=== PATIENT | female | born 1935 | race Two or more races ===

== ENCOUNTER 2021-05-14 13:10 | Inpatient (IN) | payer MEDICARE, OTHER ==
[~2021-05-14] VITALS: Ht 160 cm; Wt 79.4 kg
--- NOTE | 2021-05-14 13:40 | NUR ---
PT BIB FAMILY, PER FAMILY PT HAS HX OF DEMENTIA. AND IS BEING AGGRESSIVE TO FAMILY MEMBERS. FAMILY REQUESTING PSYCH EVAL FOR POSSIBLE GEROPSYCH OR SNF PLACEMENT. STABLE VITAL SIGN INFORMATION DEVELOPER. AWAITING MD HIDALGO.
--- NOTE | 2021-05-14 14:36 | NUR ---
SEEN AND EXAMINED BY .
[2021-05-14 15:42] LABS: BASOPHILS % (AUTO) 0.7 % (0.0-2.0); EOSINOPHILS % (AUTO) 1.3 % (0.0-6.0); HEMATOCRIT 37 % (39-51); HEMOGLOBIN 12.3 g/dL (13.5-17.5); LYMPHOCYTES # (AUTO) 1.7 K/uL (0.8-4.8); LYMPHOCYTES % (AUTO) 33.3 % (20.0-44.0); MEAN CORPUSCULAR HGB CONC 33 g/dl (31.0-36.0); MEAN CORPUSCULAR VOLUME 86 fL (80-96); MONOCYTES # (AUTO) 0.4 K/uL (0.1-1.30); MONOCYTES % (AUTO) 7.4 % (2.0-12.0); NEUTROPHILS % (AUTO) 57.3 % (43.0-81.0); PLATELET COUNT (AUTO) 189 K/uL (150-450); RED BLOOD CELL COUNT(AUTO) 4.35 MIL/uL (4.5-6.0); WHITE BLOOD COUNT (AUTO) 5.2 K/uL (4.3-11.0)
[2021-05-14 15:43] LABS: BILIRUBIN,URINE NEGATIVE (NEGATIVE); COLOR,URINE YELLOW (YELLOW); LEUKOCYTE ESTERASE ,URINE TRACE (NEGATIVE); NITRITE, URINE NEGATIVE (NEGATIVE); PROTEIN,URINE NEGATIVE (NEGATIVE); UGLUCOSE NEGATIVE (NEGATIVE); UROBILINOGEN,URINE 0.2 EU/dL (0.2)
--- NOTE | 2021-05-14 15:45 | NUR ---
RECEIVED A CALL FROM [facility] REINALDO AND PATIENT IS GOOD TO BE ADMITTED. PRIMARY PSYCHIATRIST WILL BE DR. PADRON.
[2021-05-14 15:54] LABS: BACTERIA,URINE None seen /HPF (None Seen); RBC,URINE 0-2 /HPF (0-2)
[2021-05-14 16:04] LABS: CALCIUM, SERUM 8.9 mg/dL (8.5-10.1); CARBON DIOXIDE 28 mmol/L (21-32); CHLORIDE 103 mmol/L (98-107); CREATININE 0.7 mg/dL (0.6-1.3); GLUCOSE 125 mg/dL (74-106); POTASSIUM 4.3 mmol/L (3.5-5.1); SODIUM SERUM 138 mmol/L (136-145); UREA NITROGEN, BLOOD 18 mg/dL (7-18)
[2021-05-14 16:11] LABS: ALCOHOL, BLOOD < 3 mg/dL (0-0)
[2021-05-14 16:12] LABS: THYROID STIMULATING HORMONE 1.383 uIU/mL (0.358-3.74)
[2021-05-14 16:28] LABS: ACETAMINOPHEN < 2 ug/ml (10-30)
[2021-05-14] MEDS ORDERED: EZET10TA32 PO (16:58)
[2021-05-14] MEDS ORDERED: CLON0.1T PO (16:58)
[2021-05-14] MEDS ORDERED: GLIP5TAB13 PO (16:58)
[2021-05-14] MEDS ORDERED: COLC0.6C3 PO (16:58)
[2021-05-14] MEDS ORDERED: ALBU18HF2 INH (16:58)
[2021-05-14] MEDS ORDERED: SITA1TAB2 PO (16:58)
[2021-05-14] MEDS ORDERED: HYDR-4076 PO (16:58)
[2021-05-14] MEDS ORDERED: METO25TA20 PO (16:58)
[2021-05-14] MEDS ORDERED: MYRBETRIQ PO (16:58)
[2021-05-14] MEDS ORDERED: TRAM50TA2 PO (16:58)
[2021-05-14] MEDS ORDERED: FLUT1DIS3 INH (16:58)
[2021-05-14] MEDS ORDERED: CELE-85 PO (16:58)
[2021-05-14] MEDS ORDERED: VALS320T2 PO (16:58)
[2021-05-14] MEDS ORDERED: VENL37.510 PO (16:58)
[2021-05-14] MEDS ORDERED: CLOP75TA15 PO (16:58)
[2021-05-14] MEDS ORDERED: ICOS1CAP PO (16:58)
[2021-05-14] MEDS ORDERED: DEXL60CA3 PO (16:58)
--- NOTE | 2021-05-14 17:28 | NUR ---
ART HEALTH CONSULTANT AT BEDSIDE FOR EVAL.
--- NOTE | 2021-05-14 18:39 | NUR ---
REPORT GIVEN TO LEYDI ROJO. AWAITING TRANSFER TO [facility].
[2021-05-14] MEDS ORDERED: TEMAZEPAM 7.5 MG CAPSULE PO PRN (19:30)
[2021-05-14] MEDS ORDERED: Medication Not On Formulary EA (Icosapent Ethyl (Vascepa) 2 CAP) PO SCH (19:30)
[2021-05-14] MEDS ORDERED: MAG HYDROX/AL HYDROX/SIMETH 30 ML UDC PO PRN (19:30)
[2021-05-14] MEDS ORDERED: DEXTROSE 50%-WATER 50 ML DISP.SYRIN IV PRN (19:30)
[2021-05-14] MEDS ORDERED: ALBUTEROL SULFATE 8 GM HFA.AER.AD NEB PRN (19:30)
[2021-05-14] MEDS ORDERED: FLUTICASONE/SALMETEROL 1 DISK IH SCH (19:30)
[2021-05-14] MEDS ORDERED: TRAMADOL HCL 50 MG TABLET PO PRN (19:30)
[2021-05-14] MEDS ORDERED: MAGNESIUM HYDROXIDE 30 ML UDC PO PRN (19:30)
[2021-05-14 19:50] VITALS: BP 148/86
[2021-05-14 20:04] VITALS: BP 148/86
[2021-05-14] MEDS ORDERED: BLOOD SUGAR DIAGNOSTIC 1 EACH STRIP IN ONE (20:30)
--- NOTE | 2021-05-14 20:31 | NUR ---
MS RN NOTE LAND ACQUISITION SPECIALIST TOHONO O'ODHAM CALLED TO INFORM THAT PATIENT'S HOME MEDS ADVAIR INHALER, MYRBETRIQ, VASCEPA, JANUMET/METFORMIN ARE NOT AVAILABLE AT [facility]. SPOKE TO PATIENT'S GRANDSON ALEJANDRA AND HE STATED THAT MYRBETRIQ, ADVAIR, VASCEPA HAS BEEN DISCONTINUED BY PATIENT'S PRIMARY CARE DOCTOR A WHILE BACK AND ALEJANDRA WILL PROVIDE JANUMET/METFORMIN TOMORROW IN AM. NOTIFIED LAND ACQUISITION SPECIALIST TOHONO O'ODHAM ABOUT CONVERSATION WITH PATIENT'S GRANDSON. PER TOHONO O'ODHAM, SHE WILL INFORM ES ROSADO. ADVAIR INHALER NOT ADMINISTERED SCHEDULED AT 1930, NOT AVAILABLE AND PER PATIENT'S GRANDSON, IT HAS BEEN DISCONTINUED ALREADY. Addendum: 05/14/21 at 2131 by PAOLA IRBY RN GPS RN NOTE, NOT MS RN NOTE.
[2021-05-14] MEDS: hydrALAZINE HCL 25 MG TABLET PO SCH (20:38)
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
--- NOTE | 2021-05-14 21:23 | NUR ---
GPS RN NOTE: PER PATIENT'S GRANDSON ALEJANDRA, PATIENT REFUSES TO TAKE FLU, PNEUMOCOCCAL AND COVID VACCINE. PER ALEJANDRA," MY GRANDMOTHER BELIEVES THAT THESE VACCINES WON'T WORK FOR HER AND SHE CONTINUES TO REFUSE."
--- NOTE | 2021-05-14 21:45 | NUR ---
GPS RN NOTE PER PATIENT'S GRANDSON ALEJANDRA," IF THERE IS ANY CONCERNS REGARDING MY GRANDMOTHER' S CONDITION OR IF ANYONE HAS ANY QUESTIONS, PLEASE ONLY CALL ME AT [phone]. DO NOT CALL MY OTHER FAMILY MEMBERS. I AM A CARE PROVIDER FOR MY GRAND MOTHER WELL. FEEL FREE TO CALL ME FOR ANY CONCERNS." WILL ENDORSE TO AM RN AND ON NURSING REPORT WELL.
[2021-05-14] MEDS: BLOOD SUGAR DIAGNOSTIC 1 EACH STRIP IN SCH (22:00)
[2021-05-14] MEDS: LORAZEPAM 0.5 MG TABLET PO PRN (22:30)
--- NOTE | 2021-05-14 22:33 | NUR ---
GPS RN NOTE: ANXIETY PATIENT C/O ANXIETY AND NOTED TO BE RESTLESS AT THIS TIME. PRN ATIVAN 0.5 MG 1 TAB PO ADMINISTERED. WILL CONTINUE TO MONITOR FOR ANY CHANGE OF CONDITION.
[2021-05-14] MEDS: INSULIN REGULAR, HUMAN 100 UNIT/ML 3 ML VIAL SQ PRN (22:43)
--- NOTE | 2021-05-14 22:44 | NUR ---
GPS RN NOTE: MEDICATION REFUSAL PATIENT REFUSED ACCU CHECK AND SLIDING SCALE INSULIN SCHEDULED AT 2200. PATIENT'S BLOOD SUGAR WAS CHECKED EARLIER UPON ADMISSION AND IT WAS 138 MG/DL. PATIENT HAD SMALL AMOUNT OF SNACK AND REFUSED TO CHECK HER BLOOD SUGAR LEVEL AGAIN AT THIS TIME. WILL CONTINUE TO MONITOR THE PATIENT CLOSELY.
[2021-05-15 08:00] VITALS: BP 162/83
[2021-05-15] MEDS: BLOOD SUGAR DIAGNOSTIC 1 EACH STRIP IN SCH ×4 (08:09→21:54)
[2021-05-15] MEDS: INSULIN REGULAR, HUMAN 100 UNIT/ML 3 ML VIAL SQ PRN ×2 (08:10→17:16)
[2021-05-15] MEDS ORDERED: Medication Not On Formulary EA ([Myrbetriq] 25 MG) PO SCH (09:00)
[2021-05-15] MEDS: glipiZIDE 5 MG TABLET PO SCH (09:09)
[2021-05-15] MEDS: LINAGLIPTIN 5 MG TABLET PO SCH (09:09)
[2021-05-15] MEDS: METFORMIN 500 MG TABLET PO SCH ×2 (09:09→17:06)
[2021-05-15] MEDS: EZETIMIBE 10 MG TABLET PO SCH (09:09)
[2021-05-15] MEDS: PANTOPRAZOLE 40 MG TABLET.DR PO SCH (09:10)
[2021-05-15] MEDS: CLOPIDOGREL BISULFATE 75 MG TABLET PO SCH (09:10)
[2021-05-15] MEDS: hydrALAZINE HCL 25 MG TABLET PO SCH ×2 (09:10→17:07)
[2021-05-15] MEDS: METOPROLOL SUCCINATE 25 MG TAB.SR.24H PO SCH (09:10)
[2021-05-15] MEDS: VALSARTAN 80 MG TABLET PO SCH (09:11)
[2021-05-15] MEDS: ACETAMINOPHEN 325 MG TABLET PO PRN (11:13)
--- NOTE | 2021-05-15 13:00 | NUR ---
GPS/RN ACCUCHECK = 151. PT REFUSED INSULIN COVERAGE. OFFERED X3
[2021-05-15] MEDS: DIVALPROEX SODIUM 125 MG CAP.SPRINK PO SCH ×2 (13:20→17:06)
[2021-05-15 16:00] VITALS: BP 117/60
[2021-05-15 20:14] VITALS: BP 146/75
[2021-05-15] MEDS: QUETIAPINE FUMARATE 25 MG TABLET PO SCH (21:40)
[2021-05-16] MEDS: ACETAMINOPHEN 325 MG TABLET PO PRN (05:03)
[2021-05-16 06:54] LABS: BASOPHILS % (AUTO) 0.4 % (0.0-2.0); EOSINOPHILS % (AUTO) 1.6 % (0.0-6.0); HEMATOCRIT 36 % (33-45); HEMOGLOBIN 11.8 g/dL (11.5-14.8); LYMPHOCYTES # (AUTO) 1.8 K/uL (0.8-4.8); LYMPHOCYTES % (AUTO) 29.4 % (20.0-44.0); MEAN CORPUSCULAR HGB CONC 33 g/dl (31.0-36.0); MEAN CORPUSCULAR VOLUME 86 fL (82-100); MONOCYTES # (AUTO) 0.4 K/uL (0.1-1.30); NEUTROPHILS # (AUTO) 3.8 K/uL (1.8-8.9); NEUTROPHILS % (AUTO) 61.6 % (43.0-81.0); PLATELET COUNT (AUTO) 177 K/uL (150-450); RED BLOOD CELL COUNT(AUTO) 4.13 MIL/uL (4.0-5.2); WHITE BLOOD COUNT (AUTO) 6.2 K/uL (4.3-11.0)
[2021-05-16 07:11] LABS: CALCIUM, SERUM 9.4 mg/dL (8.5-10.1); CARBON DIOXIDE 28 mmol/L (21-32); CHLORIDE 103 mmol/L (98-107); CREATININE 0.8 mg/dL (0.6-1.3); GLUCOSE 192 mg/dL (74-106); POTASSIUM 4.2 mmol/L (3.5-5.1); SODIUM SERUM 138 mmol/L (136-145); UREA NITROGEN, BLOOD 16 mg/dL (7-18)
[2021-05-16 07:28] LABS: CHOLESTEROL 196 mg/dL (<200); HDL CHOLESTEROL 34 mg/dL (40-60); LDL 119 mg/dL (0-99); TRIGLYCERIDES 263 mg/dL (30-150)
[2021-05-16] MEDS: BLOOD SUGAR DIAGNOSTIC 1 EACH STRIP IN SCH ×2 (07:30→12:00)
[2021-05-16 08:00] VITALS: BP 131/72
--- NOTE | 2021-05-16 08:39 | NUR ---
GPS/RN PT REFUSED ACCUCHECK SCHEDULED FOR 729 OFFERED X3
[2021-05-16] MEDS: PANTOPRAZOLE 40 MG TABLET.DR PO SCH (08:51)
[2021-05-16] MEDS: DIVALPROEX SODIUM 125 MG CAP.SPRINK PO SCH ×2 (08:51→16:55)
[2021-05-16] MEDS: glipiZIDE 5 MG TABLET PO SCH (08:51)
[2021-05-16] MEDS: METFORMIN 500 MG TABLET PO SCH ×2 (08:51→16:55)
[2021-05-16] MEDS: EZETIMIBE 10 MG TABLET PO SCH (08:51)
[2021-05-16] MEDS: LINAGLIPTIN 5 MG TABLET PO SCH (08:51)
[2021-05-16] MEDS: CLOPIDOGREL BISULFATE 75 MG TABLET PO SCH (08:51)
[2021-05-16] MEDS: hydrALAZINE HCL 25 MG TABLET PO SCH ×2 (08:52→16:55)
[2021-05-16] MEDS: VALSARTAN 80 MG TABLET PO SCH (08:52)
[2021-05-16] MEDS: METOPROLOL SUCCINATE 25 MG TAB.SR.24H PO SCH (08:53)
[2021-05-16 16:00] VITALS: BP 135/72
[2021-05-16 20:05] VITALS: BP 148/68
[2021-05-16 21:03] VITALS: BP 148/68
[2021-05-16] MEDS: QUETIAPINE FUMARATE 25 MG TABLET PO SCH (21:08)
[2021-05-17 08:00] VITALS: BP 133/87
[2021-05-17] MEDS: EZETIMIBE 10 MG TABLET PO SCH (09:39)
[2021-05-17] MEDS: VALSARTAN 80 MG TABLET PO SCH (09:40)
[2021-05-17] MEDS: METFORMIN 500 MG TABLET PO SCH ×2 (09:40→17:32)
[2021-05-17] MEDS: PANTOPRAZOLE 40 MG TABLET.DR PO SCH (09:40)
[2021-05-17] MEDS: hydrALAZINE HCL 25 MG TABLET PO SCH ×2 (09:40→17:32)
[2021-05-17] MEDS: DIVALPROEX SODIUM 125 MG CAP.SPRINK PO SCH ×2 (09:41→17:32)
[2021-05-17] MEDS: CLOPIDOGREL BISULFATE 75 MG TABLET PO SCH (09:41)
[2021-05-17] MEDS: METOPROLOL SUCCINATE 25 MG TAB.SR.24H PO SCH (09:41)
[2021-05-17] MEDS: glipiZIDE 5 MG TABLET PO SCH (09:41)
[2021-05-17] MEDS: LINAGLIPTIN 5 MG TABLET PO SCH (09:41)
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
--- NOTE | 2021-05-17 10:10 | NUR ---
RUDY Initial Discharge Note: Patient lives at [address] [place] [address]; ([phone]). Patient would want to return back home upon dc. RUDY will work with the MD and treatment team to help coordinate appropriate discharge.
--- NOTE | 2021-05-17 10:25 | NUR ---
SW Family Contact: SW spoke with patient's nephew Akhil ([phone]) and discussed patient's discharge and treatment plan.
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
--- NOTE | 2021-05-17 14:04 | NUR ---
SW Family Contact: SW spoke with patient's grandson Akhil ([phone]) and discussed patient's treatment/discharge plan. Akhil shared concerns that pt is difficult at home and becomes aggressive at home. He shared that she neglects her care and doesn't allow family to take care of her. Akhil stated that they will decide within family if they want pt at home or a nursing facility
[2021-05-17 16:00] VITALS: BP 153/73
[2021-05-17 20:00] VITALS: BP 132/76
[2021-05-17 20:05] VITALS: BP 132/76
--- NOTE | 2021-05-17 20:50 | NUR ---
GPS RN NOTE PATIENT HAD SHOWER, CHANGED HER GOWN AND BED LINENS WELL. PATIENT IS CALM AND COOPERATIVE.
[2021-05-17] MEDS: QUETIAPINE FUMARATE 25 MG TABLET PO SCH (21:29)
[2021-05-18 08:00] VITALS: BP 143/85
[2021-05-18] MEDS: PANTOPRAZOLE 40 MG TABLET.DR PO SCH (09:48)
[2021-05-18] MEDS: METFORMIN 500 MG TABLET PO SCH ×2 (09:49→16:55)
[2021-05-18] MEDS: LINAGLIPTIN 5 MG TABLET PO SCH (09:49)
[2021-05-18] MEDS: EZETIMIBE 10 MG TABLET PO SCH (09:49)
[2021-05-18] MEDS: glipiZIDE 5 MG TABLET PO SCH (09:49)
[2021-05-18] MEDS: DIVALPROEX SODIUM 125 MG CAP.SPRINK PO SCH ×2 (09:49→16:54)
[2021-05-18] MEDS: CLOPIDOGREL BISULFATE 75 MG TABLET PO SCH (09:49)
[2021-05-18] MEDS: VALSARTAN 80 MG TABLET PO SCH (09:52)
[2021-05-18] MEDS: METOPROLOL SUCCINATE 25 MG TAB.SR.24H PO SCH (09:53)
[2021-05-18] MEDS: hydrALAZINE HCL 25 MG TABLET PO SCH ×2 (10:00→16:54)
--- NOTE | 2021-05-18 14:13 | NUR ---
out at desk requesting blood glucose check.accu-check level 60.given oj with sugar packets.to recheck.
--- NOTE | 2021-05-18 14:29 | NUR ---
blood sugar rechecked and now 96.pt. sitting on edge of bed eating.
[2021-05-18 16:00] VITALS: BP 151/77
--- NOTE | 2021-05-18 17:59 | NUR ---
BGL CHECKED AND NOW 125.DUE TO EARLIER SUGAR RESULT,FELICITAS. METFORMIN HELD.
[2021-05-18 20:00] VITALS: BP 152/71
[2021-05-18] MEDS: QUETIAPINE FUMARATE 25 MG TABLET PO SCH (21:19)
[2021-05-18] MEDS: LORAZEPAM 0.5 MG TABLET PO PRN (22:32)
--- NOTE | 2021-05-18 22:34 | NUR ---
GPS RN NOTE: ANXIETY PATIENT C/O ANXIETY, RESTLESSNESS AT THIS TIME. PRN ATIVAN 0.5 MG 1 TAB PO ADMINISTERED. WILL CONTINUE TO MONITOR FOR ANY CHANGE OF CONDITION.
[2021-05-19 08:00] VITALS: BP 154/73
[2021-05-19] MEDS: METOPROLOL SUCCINATE 25 MG TAB.SR.24H PO SCH (09:23)
[2021-05-19] MEDS: CLOPIDOGREL BISULFATE 75 MG TABLET PO SCH (09:23)
[2021-05-19] MEDS: METFORMIN 500 MG TABLET PO SCH ×2 (09:23→17:00)
[2021-05-19] MEDS: PANTOPRAZOLE 40 MG TABLET.DR PO SCH (09:23)
[2021-05-19] MEDS: DIVALPROEX SODIUM 125 MG CAP.SPRINK PO SCH ×2 (09:24→18:06)
[2021-05-19] MEDS: EZETIMIBE 10 MG TABLET PO SCH (09:30)
[2021-05-19] MEDS: VALSARTAN 80 MG TABLET PO SCH (09:32)
[2021-05-19] MEDS: LINAGLIPTIN 5 MG TABLET PO SCH (10:52)
[2021-05-19] MEDS: glipiZIDE 5 MG TABLET PO SCH (10:52)
[2021-05-19] MEDS: hydrALAZINE HCL 25 MG TABLET PO SCH ×2 (10:52→18:06)
--- NOTE | 2021-05-19 10:58 | NUR ---
TRADJENTA AND GLUCOTROL HELD BGL HAS BEEN RUNNING LOW.
[2021-05-19 16:00] VITALS: BP 137/60
--- NOTE | 2021-05-19 18:00 | NUR ---
metformin lisa. pill held as bgl running low.
[2021-05-19] MEDS: QUETIAPINE FUMARATE 25 MG TABLET PO SCH (21:03)
[2021-05-20 08:00] VITALS: BP 150/67
[2021-05-20] MEDS: PANTOPRAZOLE 40 MG TABLET.DR PO SCH (08:22)
--- NOTE | 2021-05-20 08:40 | NUR ---
SW Discharge Note: Patient will return back home located at [address] [place] [address]; ([phone]). Patients bib Landaverde ([phone]) will flower buncher or picker pt at 10AM. Patient is happy to be going back home. Patient denies visual/auditory hallucinations. Patient denies suicidal or homicidal ideation. Patient will continue home health services through [address] [place] [address]; ([phone]). Patient will follow up with (Primary Doctor) located [address] [place] [address]; ([phone]) on who will monitor and provide psychotropic medications. Patient presents with euthymic mood and congruent affect.
[2021-05-20] MEDS: DIVALPROEX SODIUM 125 MG CAP.SPRINK PO SCH (08:49)
[2021-05-20] MEDS: VALSARTAN 80 MG TABLET PO SCH (08:49)
[2021-05-20] MEDS: EZETIMIBE 10 MG TABLET PO SCH (08:49)
[2021-05-20] MEDS: glipiZIDE 5 MG TABLET PO SCH (08:49)
[2021-05-20] MEDS: hydrALAZINE HCL 25 MG TABLET PO SCH (08:50)
[2021-05-20] MEDS: LINAGLIPTIN 5 MG TABLET PO SCH (08:50)
[2021-05-20] MEDS: CLOPIDOGREL BISULFATE 75 MG TABLET PO SCH (08:50)
[2021-05-20 08:54] VITALS: BP 150/70
[2021-05-20] MEDS: METOPROLOL SUCCINATE 25 MG TAB.SR.24H PO SCH (08:54)
[2021-05-20] MEDS: METFORMIN 500 MG TABLET PO SCH (08:54)
--- NOTE | 2021-05-20 09:01 | NUR ---
Dr. De gave an order to d/c hold and d/c home and to follow up with the primary doctor. Psychiatrist ordered to call in the prescription to the pharmacy for 1 month supply. Addendum: 05/20/21 at 4848 by PEDRO MCCRACKEN RN Pt. to follow with the psychiatrist and the primary doctor.
--- NOTE | 2021-05-20 09:23 | NUR ---
RUDY Coordination of Care: Patient will follow up with (Psychiatrist) Dr. De located at [address] [place] [address] on June 08 at 2PM.
--- NOTE | 2021-05-20 10:31 | NUR ---
Prescriptions fax to [facility] at [phone] with the tel # of [phone] and spoke to Ce the pharmacist and confirmed the meds.
--- NOTE | 2021-05-20 10:50 | NUR ---
ACCOUNT SERVICE REPRESENTATIVE NOTE PT DISCHARGED WITH STABLE VITAL SIGNS. NO S/SX OF DISTRESS NOTED.DISCHARGE INSTRUCTIONS REVIEWED WITH PATIENT; FORM SIGNED WITH COPY FILED IN CHART. INSTRUCTED PT TO F/U WITH MEDICAL DOCTOR AND PSYCHIATRIST-APPOINTMENT INFORMATION AND CONTACT INFORMATION PROVIDED. ID BAND REMOVED. ALL BELONGINGS RETURNED TO PATIENT AND ACCOUNTED FOR; BELONGINGS LIST SIGNED AND COPY PLACED IN CHART. PT DENIES SUICIDAL THOUGHTS AND SUICIDAL IDEATIONS. PT WAS ACCOMPANIED OUT THE UNIT WITH RUDY AND ROSETTE INMAN.
== END 2021-05-20 10:50 | disposition home or self-care (01) | DRG 885 ==
LOC: ER 13:16 → EDSEX 13:16 → GPS 18:45
PROVIDERS: ADMIT Psychiatry & Neurology Psychosomatic Medicine; ATTEND Nurse Practitioner Acute Care
DX: F39 Unspecified mood [affective] disorder (principal); F01.50 Vascular dementia, unspecified severity, without behavioral disturbance, psychotic disturbance, mood disturbance, and anxiety; G93.40 Encephalopathy, unspecified; F23 Brief psychotic disorder; E78.5 Hyperlipidemia, unspecified; I10 Essential (primary) hypertension; D64.9 Anemia, unspecified; E66.01 Morbid (severe) obesity due to excess calories; Z20.822 Contact with and (suspected) exposure to COVID-19; F25.9 Schizoaffective disorder, unspecified; Z73.6 Limitation of activities due to disability; E11.21 Type 2 diabetes mellitus with diabetic nephropathy; Z79.84 Long term (current) use of oral hypoglycemic drugs
CPT/HCPCS: 36415; 70450-TC; 80048-TC; 80061-TC; 81001; 82962-TC; 84439-TC; 84443-TC; 85025-TC; 87081-TC; C9803; G0480; J1815